=== PATIENT | male | born 1980 | race Caucasian/White ===

== ENCOUNTER 2016-11-22 23:41 | Emergency (ER) | payer SELFPAY ==
[~2016-11-22] VITALS: Ht 177.8 cm; Wt 68.0 kg
[~2016-11-22 23:41] MED LIST: ACULAR 0.5%3 ML OPH; ANAPROX DS550 MG PO; CEPHALEXIN500 M1 PO; DOXYCYCLINE MO100 MG PO; FLEXERIL10 MG PO; HYDROCODONE BIT1 T11 PO; MEDROL DOSEPAK4 MG PO; MOTRIN800 MG PO; NAPROSYN500 MG PO; NKHM; Nizoral 2%15 GM PO; SEPTRA DS 800 M1 TAB PO; SPECTAZOLE T; TOBREX OPHTH S2.5 ML OPH; VICODIN 500 MG-1 TAB PO
[2016-11-23] MEDS ORDERED: Motrin,Rufen800 MG PO (00:04)
== END 2016-11-23 00:21 | disposition home or self-care (01) ==
LOC: ED 23:41
DX: M77.9 Enthesopathy, unspecified (principal); M25.531 Pain in right wrist; F17.200 Nicotine dependence, unspecified, uncomplicated

== ENCOUNTER 2017-03-27 07:43 | Emergency (ER) | payer SELFPAY ==
[~2017-03-27] VITALS: Ht 177.8 cm; Wt 68.0 kg
[~2017-03-27 07:43] MED LIST changes: +Motrin,Rufen800 MG PO
[2017-03-27] MEDS ORDERED: SEPTDS PO (09:20)
[2017-03-27] MEDS ORDERED: KEFLEX500 M1 PO (09:20)
[2017-03-27] MEDS ORDERED: Motrin,Rufen800 MG PO (09:20)
== END 2017-03-27 10:10 | disposition home or self-care (01) ==
LOC: ED 07:43
DX: L02.212 Cutaneous abscess of back [any part, except buttock and flank] (principal); F17.200 Nicotine dependence, unspecified, uncomplicated

== ENCOUNTER → 2020-05-30 | Outpatient (CLI) | payer OTHER ==
[~2020-05-30] MED LIST changes: +KEFLEX500 M1 PO; +SEPTDS PO
== END | disposition home or self-care (01) ==
LOC: COVID19 13:58
PROVIDERS: ATTEND Social Worker Clinical
DX: Z11.52 Encounter for screening for COVID-19 (principal)

== ENCOUNTER 2022-10-07 15:44 | Emergency (ER) | payer MEDICAID ==
[~2022-10-07] VITALS: Ht 180.3 cm; Wt 75.7 kg
== END 2022-10-07 16:55 | disposition home or self-care (01) ==
LOC: ED 15:44
DX: S61.217A Laceration without foreign body of left little finger without damage to nail, initial encounter (principal); Z87.891 Personal history of nicotine dependence; W26.8XXA Contact with other sharp object(s), not elsewhere classified, initial encounter; Y93.89 Activity, other specified; Y92.89 Other specified places as the place of occurrence of the external cause; Y99.8 Other external cause status

== ENCOUNTER 2023-03-11 18:33 | Emergency (ER) | payer MEDICAID ==
[~2023-03-11] VITALS: Wt 78.5 kg
[2023-03-11] MEDS ORDERED: CEPHALEXIN500 M1 PO (23:39)
== END 2023-03-11 23:50 | disposition home or self-care (01) ==
LOC: ED 18:33
DX: S01.01XA Laceration without foreign body of scalp, initial encounter (principal); W22.8XXA Striking against or struck by other objects, initial encounter; Y93.89 Activity, other specified; Y92.89 Other specified places as the place of occurrence of the external cause; Y99.8 Other external cause status

== ENCOUNTER 2023-06-17 23:21 | Emergency (ER) | payer MEDICAID ==
[~2023-06-17] VITALS: Ht 154.9 cm; Wt 74.8 kg
[2023-06-17] MEDS ORDERED: Amoxicillin/Clavulanate Pota 875 MG TAB PO ONE (23:40)
[2023-06-17] MEDS ORDERED: AMOX-CLAV 875-1 EACH PO (23:42)
== END 2023-06-17 23:47 | disposition home or self-care (01) ==
LOC: ED 23:21
DX: K04.7 Periapical abscess without sinus (principal); K02.9 Dental caries, unspecified; F17.210 Nicotine dependence, cigarettes, uncomplicated

== ENCOUNTER 2023-08-21 13:25 | Emergency (ER) | payer OTHER ==
[~2023-08-21] VITALS: Wt 77.1 kg
[~2023-08-21 13:25] MED LIST changes: +AMOX-CLAV 875-1 EACH PO
[2023-08-21 14:14] LABS: BASO # 0.1 10*3/uL (0.0-0.1); BASO % 0.5 % (0.0-1.0); EOS # 0.2 10*3/uL (0.0-0.4); EOS % 2.4 % (1.0-4.0); HEMATOCRIT 37.4 % (42.0-52.0); LYMPH # 1.9 10*3/uL (1.3-4.4); LYMPH % 19.9 % (27.0-41.0); MEAN CELL VOLUME 90.6 fl (80.0-94.0); MEAN CORPUSCULAR HGB CONC 33.2 g/dl (33.0-37.0); MONO # 1.1 10*3/uL (0.1-1.0); MONO % 11.7 % (3.0-9.0); NEUT # 6.4 10*3/uL (2.3-7.9); NEUT % 65.2 % (47.0-73.0); PLATELET COUNT AUTOMATED 244 10*3/uL (130-400); RED BLOOD COUNT 4.13 10*6/uL (4.50-5.90); RED CELL DISTRI WIDTH 11.6 % (0-14.5); WHITE BLOOD COUNT 9.8 10*3/uL (4.8-10.8)
[2023-08-21 14:27] LABS: ACT PARTIAL THROMBO TIME 28.8 SECONDS (20.0-32.1)
[2023-08-21 14:32] LABS: ALKALINE PHOSPHATASE 85 U/L (46-116); BUN 14 mg/dl (9-23); CHLORIDE 104 mmol/L (98-107); POTASSIUM 3.3 mmol/L (3.4-5.1); SGPT/ALT 24 U/L (5-49); TOTAL PROTEIN 6.3 gm/dL (6.0-8.0)
[2023-08-21] MEDS ORDERED: CEPHALEXIN500 M1 PO (16:03)
[2023-08-21] MEDS ORDERED: Motrin,Rufen800 MG PO (16:04)
[2023-08-21] MEDS ORDERED: Ketorolac Tromethamine 60 MG/2 ML VIAL IM ONE (16:05)
[2023-08-21] MEDS ORDERED: CEPHALEXIN 500 MG CAP PO ONE (16:05)
== END 2023-08-21 16:15 | disposition home or self-care (01) ==
LOC: ED 13:25
PROVIDERS: Nurse Practitioner Family
DX: L03.116 Cellulitis of left lower limb (principal)

== ENCOUNTER 2024-01-21 08:41 | Emergency (ER) | payer OTHER ==
[~2024-01-21] VITALS: Ht 180.3 cm; Wt 78.0 kg
[2024-01-21 09:29] LABS: BASO # 0.1 10*3/uL (0.0-0.1); BASO % 0.8 % (0.0-1.0); EOS # 0.2 10*3/uL (0.0-0.4); EOS % 2.6 % (1.0-4.0); LYMPH # 2.1 10*3/uL (1.3-4.4); LYMPH % 26.9 % (27.0-41.0); MEAN CELL VOLUME 91.9 fl (80.0-94.0); MEAN CORPUSCULAR HGB 30.4 pg (27.0-31.0); MEAN CORPUSCULAR HGB CONC 33.1 g/dl (33.0-37.0); MEAN PLATELET VOLUME 8.9 fl (9.6-12.3); MONO % 12.9 % (3.0-9.0); NEUT # 4.5 10*3/uL (2.3-7.9); NEUT % 56.7 % (47.0-73.0); PLATELET COUNT AUTOMATED 319 10*3/uL (130-400); RED BLOOD COUNT 4.57 10*6/uL (4.50-5.90); RED CELL DISTRI WIDTH 11.5 % (0-14.5); WHITE BLOOD COUNT 7.9 10*3/uL (4.8-10.8)
[2024-01-21 09:41] LABS: ALKALINE PHOSPHATASE 70 U/L (46-116); BUN 13 mg/dl (9-23); CHLORIDE 103 mmol/L (98-107); POTASSIUM 3.7 mmol/L (3.4-5.1); SGPT/ALT 28 U/L (5-49); TOTAL PROTEIN 6.9 gm/dL (6.0-8.0)
[2024-01-21 09:51] LABS: ETHYL ALCOHOL < 3.0 mg/dl (<3)
== END 2024-01-21 10:25 | disposition left against medical advice (07) ==
LOC: ED 08:41
PROVIDERS: Emergency Medicine
DX: R00.0 Tachycardia, unspecified (principal); F19.90 Other psychoactive substance use, unspecified, uncomplicated; F13.10 Sedative, hypnotic or anxiolytic abuse, uncomplicated; Z53.29 Procedure and treatment not carried out because of patient's decision for other reasons; Z79.899 Other long term (current) drug therapy

== ENCOUNTER 2025-03-31 19:53 | Emergency (ER) | payer OTHER ==
[~2025-03-31] VITALS: Ht 180.3 cm; Wt 72.6 kg
[2025-03-31] MEDS ORDERED: Amoxicillin/Clavulanate Pota 875 MG TAB PO ONE (20:15)
[2025-03-31] MEDS ORDERED: AMOX-CLAV 875-1 EACH PO (20:15)
== END 2025-03-31 20:42 | disposition home or self-care (01) ==
LOC: ED 19:53
DX: K08.89 Other specified disorders of teeth and supporting structures (principal)